=== PATIENT | female | born 1995 | race Caucasian/White ===

== ENCOUNTER 2023-05-30 22:53 | Emergency (ER) | payer SELFPAY ==
[~2023-05-30] VITALS: Ht 160 cm; Wt 82.0 kg
[2023-05-30 23:04] VITALS: BP 127/85; PULSE 115; RESP 14; TEMP 98.2; O2SAT 98
== END 2023-05-31 06:57 | disposition left against medical advice (07) ==
LOC: ER 22:53
DX: J02.9 Acute pharyngitis, unspecified (principal); Z53.21 Procedure and treatment not carried out due to patient leaving prior to being seen by health care provider
CPT/HCPCS: 99281